=== PATIENT | male | born 1965 | race Caucasian/White ===

== ENCOUNTER 2020-08-01 09:34 | Inpatient (IN) | payer OTHER ==
[2020-08-01] MEDS ORDERED: ASPIRIN 81 MG PO STA (09:47)
[2020-08-01] MEDS ORDERED: NITROGLYCERIN SL TABS 0.4 MG TAB SUBLINGUAL STA ×3 (09:47)
--- NOTE | 2020-08-01 09:50 | ED ---
General Adult HPI - General Chief complaint: Chest Pain Stated complaint: chest pain Time Seen by Provider: 08/01/20 09:43 Source: patient, RN notes reviewed Mode of arrival: wheelchair Limitations: no limitations - History of Present Illness Initial comments: Patient is a pleasant 55-year-old male presenting to the emergency Department with complaints of chest discomfort. Onset of symptoms was last night. Discomfort is somewhat severe at this time rated 8/10. Patient does feel sweaty. Mild nausea. No dyspnea. Patient does have history of similar symptoms previously associated with heart attack a proximally 7 or 8 years ago. Discomfort feels like tightness. There is some radiation towards the neck and left arm. No leg pain or leg swelling. - Related Data Home Medications Medication Instructions Recorded Confirmed Aspirin 81 mg PO DAILY 10/05/14 10/05/14 Fenofibrate 160 mg PO DAILY 10/05/14 10/07/14 Losartan [Cozaar] 50 mg PO DAILY 10/05/14 10/07/14 Metoprolol Tartrate [Lopressor] 50 mg PO BID 10/05/14 10/07/14 Niacin [Niacin ER] 500 mg PO BID 10/05/14 10/07/14 Simvastatin [Zocor] 40 mg PO DAILY 10/05/14 10/07/14 Previous Rx's Medication Instructions Recorded Hydrocodone/Acetaminophen [[place] 1 each PO Q6HR PRN #30 tab 07/07/16 5-325] Allergies Allergy/AdvReac Type Severity Reaction Status Date / Time No Known Allergies Allergy Verified 08/01/20 11:03 Review of Systems ROS Statement: Those systems with pertinent positive or pertinent negative responses have been documented in the HPI. ROS Other: All systems not noted in ROS Statement are negative. Constitutional: Denies: fever Eyes: Denies: eye pain ENT: Denies: ear pain Respiratory: Denies: cough, dyspnea Cardiovascular: Reports: chest pain Endocrine: Denies: fatigue Gastrointestinal: Denies: abdominal pain Genitourinary: Denies: dysuria Musculoskeletal: Denies: back pain Skin: Denies: rash Neurological: Denies: weakness Past Medical History Past Medical History: GERD/Reflux, Hyperlipidemia, Myocardial Infarction ([place]) Additional Past Medical History / Comment(s): "irregular heart rate" Last Myocardial Infarction Date:: 2009 History of Any Multi-Drug Resistant Organisms: None Reported Past Surgical History: Appendectomy, Coronary Bypass/CABG, Heart Catheterization With Stent Past Anesthesia/Blood Transfusion Reactions: No Reported Reaction Additional Past Anesthesia/Blood Transfusion Reaction / Comment(s): adopted unaware of family hx Past Psychological History: No Psychological Hx Reported Smoking Status: Current every day smoker Past Alcohol Use History: Occasional Past Drug Use History: None Reported General Exam Limitations: no limitations General appearance: alert, other (Patient does have mild diaphoresis and does appear mildly uncomfortable) Head exam: Present: normocephalic Eye exam: Present: normal appearance Respiratory exam: Present: normal lung sounds bilaterally. Absent: chest wall tenderness Cardiovascular Exam: Present: regular rate, normal rhythm Expanded Peripheral pulses: 2+: Radial (R), Radial (L), Posterior Tibialis (R), Posterior Tibialis (L), Dorsalis Pedis (R), Dorsalis Pedis (L) GI/Abdominal exam: Present: soft. Absent: tenderness Extremities exam: Present: normal inspection. Absent: pedal edema, calf tenderness Neurological exam: Present: alert Psychiatric exam: Present: normal affect, normal mood Skin exam: Present: other (Mildly diaphoretic) Course Vital Signs 08/01/20 08/01/20 08/01/20 09:38 10:19 10:46 Temperature 97.7 F Pulse Rate 56 L Respiratory 18 Rate Blood Pressure 186/107 157/104 143/90 O2 Sat by Pulse 97 Oximetry EKG Findings - EKG Comments: EKG Findings:: Sinus bradycardia with a rate of 50. IL 168. QRS 110. QT 476. QTc 433. Right axis. Normal QRS. T wave inversion in V6. Medical Decision Making - Medical Decision Making Patient reevaluated and significantly improved. Patient updated on results and plan. There is mild bump in troponin with concerning symptoms. Patient will be started on heparin cardiology will be placed on consult. Dr. Payne has been paged for admission, covering for Dr. Ellsworth, who admits for Dr. Savage. - Lab Data Result diagrams: 08/01/20 10:01 08/01/20 10: Lab Results 08/01/20 08/01/20 08/01/20 Range/Units 10:01 10:01 10:01 WBC 10.2 (3.8-10.6) k/uL RBC 5.58 (4.30-5.90) m/uL Hgb 17.6 H (13.0-17.5) gm/dL Hct 51.9 (39.0-53.0) % MCV 93.0 (80.0-100.0) fL MCH 31.6 (25.0-35.0) pg MCHC 34.0 (31.0-37.0) g/dL RDW 12.3 (11.5-15.5) % Plt Count 264 (150-450) k/uL Neutrophils % 54 % Lymphocytes % 34 % Monocytes % 6 % Eosinophils % 3 % Basophils % 2 % Neutrophils # 5.5 (1.3-7.7) k/uL Lymphocytes # 3.4 (1.0-4.8) k/uL Monocytes # 0.6 (0-1.0) k/uL Eosinophils # 0.3 (0-0.7) k/uL Basophils # 0.2 (0-0.2) k/uL PT 10.4 (9.0-12.0) sec INR 1.0 (<1.2) APTT 24.0 (22.0-30.0) sec D-Dimer 0.22 (<0.60) mg/L FEU Sodium 139 (137-145) mmol/L Potassium 4.6 (3.5-5.1) mmol/L Chloride 105 (98-107) mmol/L Carbon Dioxide 28 (22-30) mmol/L Anion Gap 6 mmol/L BUN 13 (9-20) mg/dL Creatinine 1.38 H (0.66-1.25) mg/dL Est GFR (CKD-EPI)AfAm 65 (>60 ml/min/1.73 sqM) Est GFR (CKD-EPI)NonAf 56 (>60 ml/min/1.73 sqM) Glucose 137 H (74-99) mg/dL Calcium 9.6 (8.4-10.2) mg/dL Magnesium 1.8 (1.6-2.3) mg/dL Total Bilirubin 1.1 (0.2-1.3) mg/dL AST 33 (17-59) U/L ALT 37 (4-49) U/L Alkaline Phosphatase 78 (38-126) U/L Troponin I (0.000-0.034) ng/mL Total Protein 7.0 (6.3-8.2) g/dL Albumin 4.3 (3.5-5.0) g/dL 08/01/20 Range/Units 10:01 WBC (3.8-10.6) k/uL RBC (4.30-5.90) m/uL Hgb (13.0-17.5) gm/dL Hct (39.0-53.0) % MCV (80.0-100.0) fL MCH (25.0-35.0) pg MCHC (31.0-37.0) g/dL RDW (11.5-15.5) % Plt Count (150-450) k/uL Neutrophils % % Lymphocytes % % Monocytes % % Eosinophils % % Basophils % % Neutrophils # (1.3-7.7) k/uL Lymphocytes # (1.0-4.8) k/uL Monocytes # (0-1.0) k/uL Eosinophils # (0-0.7) k/uL Basophils # (0-0.2) k/uL PT (9.0-12.0) sec INR (<1.2) APTT (22.0-30.0) sec D-Dimer (<0.60) mg/L FEU Sodium (137-145) mmol/L Potassium (3.5-5.1) mmol/L Chloride (98-107) mmol/L Carbon Dioxide (22-30) mmol/L Anion Gap mmol/L BUN (9-20) mg/dL Creatinine (0.66-1.25) mg/dL Est GFR (CKD-EPI)AfAm (>60 ml/min/1.73 sqM) Est GFR (CKD-EPI)NonAf (>60 ml/min/1.73 sqM) Glucose (74-99) mg/dL Calcium (8.4-10.2) mg/dL Magnesium (1.6-2.3) mg/dL Total Bilirubin (0.2-1.3) mg/dL AST (17-59) U/L ALT (4-49) U/L Alkaline Phosphatase (38-126) U/L Troponin I 0.069 H* (0.000-0.034) ng/mL Total Protein (6.3-8.2) g/dL Albumin (3.5-5.0) g/dL Critical Care Time Critical Care Time: Yes Total Critical Care Time: 31 Disposition Clinical Impression: Unstable angina Disposition: ADMITTED IP TO THIS HOSP Condition: Serious Is patient prescribed a controlled substance at d/c from ED?: No Referrals: Farshad Savage DO [Primary Care Provider] - 1-2 days Decision Time: 11:21
--- NOTE | 2020-08-01 10:25 | XR ---
EXAMINATION TYPE: XR chest 1V portable DATE OF EXAM: 08/01/2020 COMPARISON: NONE HISTORY: Chest pain. History of bypass. TECHNIQUE: Single portable frontal view of the chest is obtained. FINDINGS: External wires and mediastinal clips. Low lung volumes with chronic parenchymal changes and bibasilar opacities. No pleural effusion or pneumothorax seen bilaterally. The cardiac silhouette s ize is upper limits of normal. The osseous structures are intact. IMPRESSION: Lung volumes with patchy bibasilar acute infiltrate and/or atelectasis.
[2020-08-01 10:43] LABS: Basophils # (A) 0.2 k/uL (0-0.2); Basophils % (A) 2 %; Eosinophils # (A) 0.3 k/uL (0-0.7); Eosinophils % (A) 3 %; HCT 51.9 % (39.0-53.0); HGB 17.6 gm/dL (13.0-17.5); Lymphocytes # (A) 3.4 k/uL (1.0-4.8); Lymphocytes % (A) 34 %; MCH 31.6 pg (25.0-35.0); Mean Platelet Volume 8.1; Monocytes # (A) 0.6 k/uL (0-1.0); Monocytes % (A) 6 %; Neutrophils # (A) 5.5 k/uL (1.3-7.7); Neutrophils % (A) 54 %; Platelet Count 264 k/uL (150-450); RBC 5.58 m/uL (4.30-5.90); RDW 12.3 % (11.5-15.5); WBC 10.2 k/uL (3.8-10.6)
[2020-08-01 10:54] LABS: Albumin 4.3 g/dL (3.5-5.0); Calcium 9.6 mg/dL (8.4-10.2); Magnesium 1.8 mg/dL (1.6-2.3); Potassium 4.6 mmol/L (3.5-5.1); Total Bilirubin 1.1 mg/dL (0.2-1.3)
[2020-08-01 11:05] LABS: D-Dimer 0.22 mg/L FEU (<0.60); Prothrombin Time 10.4 sec (9.0-12.0)
[2020-08-01] MEDS ORDERED: MORPHINE SULFATE 4 MG/ML SYRINGE IV PRN (11:21)
[2020-08-01] MEDS ORDERED: NITROGLYCERIN SL TABS 0.4 MG TAB SUBLINGUAL PRN (11:21)
[2020-08-01] MEDS ORDERED: HEPARIN SODIUM,PORCINE 5,000 UNIT/ML 1 ML VIAL IV ONE (11:21)
[2020-08-01] MEDS ORDERED: HEPARIN SODIUM,PORCINE 5,000 UNIT/ML 1 ML VIAL IV PRN (11:21)
[2020-08-01] MEDS ORDERED: HEPARIN SOD,PORK IN 0.45% NACL 25,000 UNIT in 0.45% NACL 1 250ML.BAG IV SCH (11:30)
[2020-08-01] MEDS: NITROGLYCERIN OINT 1 INCH/GM PACKET TOPICAL SCH ×2 (11:56→21:13)
--- NOTE | 2020-08-01 12:37 | P.CRDCN ---
History of Present Illness Consult date: 08/01/20 Chief complaint: Chest pain History of present illness: This is a very pleasant 55-year-old gentleman was coronary artery disease and prior coronary artery bypass grafting with unknown details at this point as well as hypertension and dyslipidemia and smoking presented to the emergency department complaining of chest discomfort. 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 The patient described the discomfort as a pressure across the chest with radiation to the jaw and neck and teeth as well as with associated sweating. No loss of consciousness or syncope. No dizziness or lightheadedness and no feeling of heart racing or fluttering. The first set of troponin came in to be slightly abnormal. The EKG showed sinus rhythm with sinus bradycardia and ST changes. The patient stated that he continues to have mild ongoing chest discomfort at this point. The patient was last time seen in our practice 2 years ago. He stated that he stop smoking but he started smoking again. Obviously he is a slightly obese and does not watch his diet and does not exercise as well. The chest x-ray did not show any acute abnormalities. Currently the patient is on heparin. I advised the patient to undergo coronary angiogram for definitive diagnosis and for possible percutaneous coronary intervention. The patient is in full agreement and full understanding. I spoke with Dr. Whitley who is going to proceed with heart catheterization once we have the room and comfortable. At this point there is no room in the [address] because of 3 wounds are occupied. The patient is going to undergo the procedure once there is a room available. Past Medical History Past Medical History: Coronary Artery Disease (CAD), Heart Failure, COPD, Diabetes Mellitus, Eye Disorder, GERD/Reflux, Hyperlipidemia, Hypertension, Myocardial Infarction ([place]) Additional Past Medical History / Comment(s): "irregular heart rate", borderline diabetic - no medications at home at this time. Last Myocardial Infarction Date:: 2009 History of Any Multi-Drug Resistant Organisms: None Reported Past Surgical History: Appendectomy, Coronary Bypass/CABG, Heart Catheterization Past Anesthesia/Blood Transfusion Reactions: No Reported Reaction Additional Past Anesthesia/Blood Transfusion Reaction / Comment(s): adopted unaware of family hx Past Psychological History: No Psychological Hx Reported Smoking Status: Current every day smoker Past Alcohol Use History: Occasional Past Drug Use History: None Reported Medications and Allergies Home Medications Medication Instructions Recorded Confirmed Type Aspirin 81 mg PO DAILY 10/05/14 10/05/14 History Fenofibrate 160 mg PO DAILY 10/05/14 10/07/14 History Metoprolol Tartrate [Lopressor] 50 mg PO BID 10/05/14 10/07/14 History Niacin [Niacin ER] 500 mg PO BID 10/05/14 10/07/14 History Atorvastatin [Lipitor] 80 mg PO HS 08/01/20 08/01/20 History Losartan Potassium 100 mg PO DAILY 08/01/20 08/01/20 History Nitroglycerin Sl Tabs [Nitrostat] 0.4 mg SUBLINGUAL Q5M PRN 08/01/20 08/01/20 History Ranitidine HCl 150 mg PO BID 08/01/20 08/01/20 History Allergies Allergy/AdvReac Type Severity Reaction Status Date / Time No Known Allergies Allergy Verified 08/01/20 11:03 Physical Exam Vitals: Vital Signs Temp Pulse Pulse Resp BP BP Pulse Ox 08/01/20 12:00 97.6 F 50 L 18 146/120 98 08/01/20 11:24 97.4 F L 52 L 18 155/106 98 08/01/20 10:46 143/90 08/01/20 10:19 157/104 08/01/20 09:38 97.7 F 56 L 18 186/107 97 Intake and Output 07/31/20 08/01/20 08/01/20 22:59 06:59 14:59 Other: Weight 101.605 kg - Constitutional General appearance: no acute distress - Respiratory Respiratory: bilateral: CTA - Cardiovascular Rhythm: regular Heart sounds: normal: S1, S2 Abnormal Heart Sounds: systolic murmur Results 08/01/20 10:01 08/01/20 10:01 Cardiac Enzymes 08/01/20 08/01/20 Range/Units 10:01 10:01 AST 33 (17-59) U/L Troponin I 0.069 H* (0.000-0.034) ng/mL Coagulation 08/01/20 Range/Units 10:01 PT 10.4 (9.0-12.0) sec APTT 24.0 (22.0-30.0) sec CBC 08/01/20 Range/Units 10:01 WBC 10.2 (3.8-10.6) k/uL RBC 5.58 (4.30-5.90) m/uL Hgb 17.6 H (13.0-17.5) gm/dL Hct 51.9 (39.0-53.0) % Plt Count 264 (150-450) k/uL Comprehensive Metabolic Panel 08/01/20 Range/Units 10:01 Sodium 139 (137-145) mmol/L Potassium 4.6 (3.5-5.1) mmol/L Chloride 105 (98-107) mmol/L Carbon Dioxide 28 (22-30) mmol/L BUN 13 (9-20) mg/dL Creatinine 1.38 H (0.66-1.25) mg/dL Glucose 137 H (74-99) mg/dL Calcium 9.6 (8.4-10.2) mg/dL AST 33 (17-59) U/L ALT 37 (4-49) U/L Alkaline Phosphatase 78 (38-126) U/L Total Protein 7.0 (6.3-8.2) g/dL Albumin 4.3 (3.5-5.0) g/dL Current Medications Generic Name Dose Route Start Last Admin Trade Name Freq PRN Reason Stop Dose Admin Aspirin 325 mg 08/02/20 09:00 Aspirin 325 Mg Tab PO DAILY [facility] Heparin Sodium (Porcine) 0 unit 08/01/20 11:21 Heparin Sodium,Porcine 5,000 Unit/Ml 1 Ml Vial IV Q6HR PRN Low PTT Protocol Heparin Sodium/Sodium Chloride 250 mls @ 10 mls/hr 08/01/20 11:30 08/01/20 11:49 25,000 unit/ Sodium Chloride IV 9.842 units/kg/hr .Q24H CHRISTINE 10 mls/hr Administration Protocol 9.842 UNITS/KG/HR Morphine Sulfate 4 mg 08/01/20 11:21 Morphine Sulfate 4 Mg/Ml Syringe IV Q5M PRN Chest Pain Nitroglycerin 0.4 mg 08/01/20 11:21 Nitroglycerin Sl Tabs 0.4 Mg Tab SUBLINGUAL Q5M PRN Chest Pain Nitroglycerin 1 inch 08/01/20 12:00 08/01/20 11:56 Nitroglycerin Oint 1 Inch/Gm Packet TOPICAL 1 inch Q6HR [facility] Administration Sodium Chloride 10 ml 08/01/20 21:00 Sodium Chloride 0.9% Flush 10 Ml Syringe IV BID CHRISTINE Intake and Output 07/31/20 08/01/20 08/01/20 22:59 06:59 14:59 Other: Weight 101.605 kg Patient Weight 08/02/20 06:59 Weight 101.605 kg 08/01/20 10:01 08/01/20 10:01 Assessment and Plan Assessment: Assessment #1 acute coronary syndrome #2 coronary artery disease and prior revascularization #3 status post coronary artery bypass grafting #4 significant history of smoking #5 hypertension #6 dyslipidemia Plan #1 continue the heparin IV #2 continue anti-ischemic medication #3 proceed with coronary angiogram #4 obtain an echocardiogram was Doppler #5 follow-up with the patient Thank you for allowing us participate in the care of the patient
[2020-08-01] MEDS ORDERED: IV FLUID CONTINUATION 350 ML IV ONE (14:30)
[2020-08-01] MEDS ORDERED: fentaNYL (PF) 50 MCG/ML 2 ML AMP ONE (14:37)
[2020-08-01] MEDS ORDERED: LIDOCAINE 1% INJ 10MG/ML (20 ML MDV) ONE (14:37)
[2020-08-01] MEDS ORDERED: fentaNYL (PF) 50 MCG/ML 2 ML AMP IV ONE (14:40)
[2020-08-01] MEDS ORDERED: LIDOCAINE 1% INJ 10MG/ML (20 ML MDV) SQ ONE (14:40)
[2020-08-01] MEDS ORDERED: MIDAZOLAM 2 MG/2 ML VIAL IV ONE (14:40)
[2020-08-01] MEDS ORDERED: IOPAMIDOL-370 125ML BTL INJ ONE (15:04)
--- NOTE | 2020-08-01 15:22 | P.CARDCATH ---
Date of Procedure: 08/01/20 Preoperative Diagnosis: Acute coronary syndrome, non-STEMI Postoperative Diagnosis: Total occlusion of the graft to the OM and a critical lesion in the RCA. Presumed total occlusion of the graft to the diagonal Procedure(s) Performed: Left heart catheterization with selective injection of the vein graft to circumflex and also OLIVO graft and [place] vessels Description of Procedure: HISTORY: This is a 55-year-old gentleman with history of ischemic heart disease with previous bypass surgery with the OLIVO graft to the LAD and diagonal and vein graft to the diagonal and also OM branch of the circumflex. Patient is admitted to the hospital with onset of chest pain around 4:00 last night which is ongoing. No acute ST elevations on EKGs. Because of ongoing chest pain, Patient is advised to have cardiac catheterization. CONSENT:I have discussed the risks, benefits and alternative therapies for the above-mentioned procedure and for both sedation/analgesia as well as necessary blood product administration, if indicated, as they pertain to this patient. The patient has indicated understanding and acceptance of the risks and procedures discussed. PROCEDURE: Patient was brought to the lab in a fasting state. Patient was given some IV sedation. The right groin is infiltrated with lidocaine and right femoral artery was entered using Seldinger technique. A 6-[place] catheter was left in place and selective coronary arteriography and left ventriculography was performed. Patient tolerated the procedure well. Patient is going to have stent placement by Dr. Pierre. No immediate complications were noted and patient was transferred to [facility] in a stable condition Conscious Sedation: Versed 1mg Fentanyl 50 g Duration 35minutes HEMODYNAMICS: Aortic pressure 120/84 SELECTIVE CORONARY ARTERIOGRAPHY: LEFT MAIN: Long with about 50-70% distal left main disease THE LEFT ANTERIOR DESCENDING CORONARY ARTERY:. Near totally occluded after the diagonal branch. The distal LAD is small in caliber and shows competitive blood flow THE LEFT CIRCUMFLEX AND IS CORONARY ARTERY: Consistent with OM branch which appears to be free of occlusive disease. It is presumed total occlusion of the circumflex and OM branch THE RIGHT CORONARY ARTERY: Which shows a critical lesion in the proximal portion and also critical lesion in the PDA The OLIVO graft to the LAD: It is patent at the proximal and also distal anastomosis to diagonal and the LAD provides flow to the diagonal and competetive flow to the distal LAD. The vein graft to the circumflex: This is totally occluded at the distal anastomosis. The vein graft to the diagonal: This seemed to be totally occluded LEFT VENTRICULOGRAPHY: Not performed FINAL IMPRESSION:. Total occlusion of the vein graft to the circumflex with patent OLIVO graft. Critical lesion in the proximal RCA and PDA of the right coronary artery. The vein graft to the diagonal is presumed total occlusion PLAN: Stent placement of the graft to the OM branch and also RCA to be done by Dr. Pierre PROGNOSIS: Guarded
--- NOTE | 2020-08-01 15:40 | ECHOF ---
Referral Reason:ACS MEASUREMENTS -------- HEIGHT: 177.8 cm WEIGHT: 101.6 kg BP: IVSd: 1.2 cm (0.6 - 1.1) LVIDd: 4.8 cm (3.9 - 5.3) LVPWd: 1.6 cm (0.6 - 1.1) IVSs: 1.7 cm LVIDs: 2.6 cm LVPWs: 1.2 cm RVIDd: 3.4 cm (< 3.3) LAESV Index (A-L): 27.70 ml/m Ao Diam: 3.5 cm (2.0 - 3.7) AV Cusp: 2.6 cm (1.5 - 2.6) EPSS: 0.2 cm MV E Rodríguez: 0.86 m/s MV DecT: 266 ms MV A Rodríguez: 0.33 m/s MV E/A Ratio: 2.63 RAP: 5.00 mmHg RVSP: 20.28 mmHg MV EF SLOPE: 125.15 mm/s (70 - 150) MV EXCURSION: 23.64 mm (> 18.000) FINDINGS -------- Sinus rhythm. This was a technically difficult study with suboptimal apical views. The left ventricular size is normal. There is mild concentric left ventricular hypertrophy. Overa ll left ventricular systolic function is low-normal with, an EF between 50 - 55 %. Basal lateral LV wall motion is hypokinetic. Basal inferior LV wall motion is hypokinetic. The right ventricle is mildly enlarged. Normal LA size by volume 22+/-6 ml/m2. The right atrial size is normal. 5.0mg of Lumason was utilized for enhancement of images Interatrial and interventricular septum intact. The aortic valve is trileaflet and appears structurally normal. There is no evidence of aortic regu rgitation. There is no evidence of aortic stenosis. No mitral regurgitation. Mild tricuspid regurgitation present. There is no evidence of pulmonary hypertension. The right v entricular systolic pressure, as measured by Doppler, is 20.28mmHg. There is no pulmonic regurgitation present. The aortic root size is normal. IVC Not well visulized. There is no pericardial effusion. CONCLUSIONS -------- 1. The left ventricular size is normal. 2. There is mild concentric left ventricular hypertrophy. 3. Overall left ventricular systolic function is low-normal with, an EF between 50 - 55 %. 4. Basal lateral LV wall motion is hypokinetic. 5. Basal inferior LV wall motion is hypokinetic. 6. The right ventricle is mildly enlarged. 7. Mild tricuspid regurgitation present. OFFICE COORDINATOR: Olivia Rolon RDCS
[2020-08-01] MEDS ORDERED: BIVALIRUDIN BOLUS 250 MG/50 ML IV ONE (15:51)
[2020-08-01] MEDS ORDERED: MIDAZOLAM 2 MG/2 ML VIAL IVP ONE (15:51)
[2020-08-01] MEDS ORDERED: BIVALIRUDIN 250 MG in SODIUM CHLORIDE 0.9% 50 ML IV ONE (15:54)
[2020-08-01] MEDS ORDERED: niCARdipine 25 MG/10 ML VIAL ONE (15:56)
[2020-08-01] MEDS ORDERED: niCARdipine Syringe (1,000 mcg/10 mL) INTRACORON ONE ×2 (15:57→16:02)
[2020-08-01] MEDS ORDERED: CLOPIDOGREL 75 MG TAB ONE (16:04)
[2020-08-01] MEDS ORDERED: ZOLPIDEM 5 MG TAB PO PRN (16:09)
[2020-08-01] MEDS ORDERED: MAG HYDROX/AL HYDROX/SIMETH 30 ML CUP PO PRN (16:09)
[2020-08-01] MEDS ORDERED: ATROPINE SULFATE 0.1 MG/ML 10ML SYRINGE IV PRN (16:09)
[2020-08-01] MEDS ORDERED: RX INFO: IV CONTRAST WAS GIVEN 1 EACH MISC MISCELLANE PRN (16:09)
[2020-08-01] MEDS ORDERED: CLOPIDOGREL 75 MG TAB PO ONE (16:14)
[2020-08-01] MEDS ORDERED: IOPAMIDOL-370 100ML BTL INJ ONE (16:14)
[2020-08-01] MEDS: SODIUM CHLORIDE 0.9% 1,000 ML IV SCH (17:59)
[2020-08-01] MEDS: NIACIN TR 500 MG CAPLET PO SCH (21:09)
[2020-08-01] MEDS: METOPROLOL TARTRATE 50 MG TAB PO SCH (21:09)
[2020-08-01] MEDS: FAMOTIDINE 20 MG TAB PO SCH (21:09)
[2020-08-01] MEDS: ATORVASTATIN 80 MG TAB PO SCH (21:09)
--- NOTE | 2020-08-01 21:55 | P.HPIM ---
History of Present Illness H&P Date: 08/01/20 Chief Complaint: Chest pain Mr. Parnell is a 55-year-old male with a past medical history of coronary artery disease status post CABG, diabetes mellitus, COPD, GERD, hyperlipidemia, hypertension coming into the hospital with a chief complaint of Chest pain. Patient states that he woke up around 4 AM this morning with chest pain. He felt tightness around his chest and neck, then it radiated to his jaw along with diaphoresis. Patient also felt that the pain radiated forward to his arms mostly towards the left side. He felt that this pain is similar to the one that he had when he had an CT. Patient mentions that he stopped smoking for 2 years after CABG, but started to smoke again. On review of systems patient denied having any cough or difficulty in breathing. No abdominal pain nausea vomiting or diarrhea. No dysuria or hematuria. No fevers chills or rigors. No headaches, neck pain or visual changes. No speech abnormalities. No weakness of his extremities. No recent infections or bleeding issues. In the ER patient had elevated troponin of 0.069, and started on heparin drip. He had an EKG showing sinus bradycardia with ST and T wave abnormalities in the lateral leads. Cardiology Dr. Pierre has been consulted, and the patient had total occlusion of the vein graft to the circumflex with patent OLIVO graft. Critical lesion in the proximal RCA and PDA of the right coronary artery. The vein graft to the diagonal is pursuing total occlusion. Patient had stenting of the RCA and OM branch, currently in the postop area. Review of Systems REVIEW OF SYSTEMS: CONSTITUTIONAL: No fever, no malaise, no fatigue. HEENT: No recent visual problems or hearing problems. Denied any sore throat. CARDIOVASCULAR: As per HPI PULMONARY: no cough, no hemoptysis. GASTROINTESTINAL: No diarrhea, no nausea, no vomiting, no abdominal pain. NEUROLOGICAL: No headaches, no weakness, no numbness. HEMATOLOGICAL: Denies any bleeding or petechiae. GENITOURINARY: No dysuria or hematuria MUSCULOSKELETAL/RHEUMATOLOGICAL: Denies any joint pain, swelling, or any muscle pain. ENDOCRINE: Denies any polyuria or polydipsia. The rest of the 14-point review of systems is negative. Past Medical History Past Medical History: Coronary Artery Disease (CAD), Heart Failure, COPD, Diabetes Mellitus, Eye Disorder, GERD/Reflux, Hyperlipidemia, Hypertension, Myocardial Infarction (CT) Additional Past Medical History / Comment(s): "irregular heart rate", borderline diabetic - no medications at home at this time. Last Myocardial Infarction Date:: 2009 History of Any Multi-Drug Resistant Organisms: None Reported Past Surgical History: Appendectomy, Coronary Bypass/CABG, Heart Catheterization Past Anesthesia/Blood Transfusion Reactions: No Reported Reaction Additional Past Anesthesia/Blood Transfusion Reaction / Comment(s): adopted unaware of family hx Past Psychological History: No Psychological Hx Reported Smoking Status: Current every day smoker Past Alcohol Use History: Occasional Past Drug Use History: None Reported Medications and Allergies Home Medications Medication Instructions Recorded Confirmed Type Aspirin 81 mg PO DAILY 10/05/14 08/01/20 History Fenofibrate 160 mg PO DAILY 10/05/14 08/01/20 History Metoprolol Tartrate [Lopressor] 50 mg PO BID 10/05/14 08/01/20 History Niacin [Niacin ER] 1,500 mg PO HS 10/05/14 08/01/20 History Atorvastatin [Lipitor] 80 mg PO HS 08/01/20 08/01/20 History Losartan Potassium 100 mg PO DAILY 08/01/20 08/01/20 History Nitroglycerin Sl Tabs [Nitrostat] 0.4 mg SUBLINGUAL Q5M PRN 08/01/20 08/01/20 History Ranitidine HCl 150 mg PO BID 08/01/20 08/01/20 History Allergies Allergy/AdvReac Type Severity Reaction Status Date / Time No Known Allergies Allergy Verified 08/01/20 11:03 Physical Exam Vitals: Vital Signs Temp Pulse Pulse Pulse Resp BP BP 08/01/20 16:58 62 16 120/70 08/01/20 16:39 52 L 18 119/70 08/01/20 16:24 56 L 18 113/70 08/01/20 13:54 53 L 136/89 08/01/20 12:00 97.6 F 50 L 18 146/120 08/01/20 11:24 97.4 F L 52 L 18 155/106 08/01/20 10:46 143/90 08/01/20 10:19 157/104 08/01/20 09:38 97.7 F 56 L 18 186/107 Pulse Ox 08/01/20 16:58 96 11/09/20 16:39 96 08/01/20 16:24 93 L 08/01/20 13:54 93 L 08/01/20 12:00 98 08/01/20 11:24 98 08/01/20 10:46 08/01/20 10:19 08/01/20 09:38 97 Intake and Output 08/01/20 08/01/20 08/01/20 06:59 14:59 22:59 Intake Total 200 35 Balance 200 35 Intake: IV 200 35 Sodium Chloride 0.9% 1, 0 000 ml @ 75 mls/hr IV . [id number] [facility] Rx#:[id number] Other: Weight 101.605 kg PHYSICAL EXAMINATION: GENERAL: The patient is alert and oriented x3, not in any acute distress. Well developed, well nourished. HEENT: Pupils are round and equally reacting to light. EOMI. No scleral icterus. No conjunctival pallor. Normocephalic, atraumatic. No pharyngeal erythema. No thyromegaly. CARDIOVASCULAR: S1 and S2 present. PULMONARY: Bilateral crackles heard. ABDOMEN: Soft, nondistended, normoactive bowel sounds. No palpable organomegaly. Mild tenderness in the left lower quadrant MUSCULOSKELETAL: No joint swelling or deformity. EXTREMITIES: No pedal edema, Right groin - incision site clean, no hematoma. NEUROLOGICAL: Gross neurological examination did not reveal any focal deficits. SKIN: No rashes. Results CBC & Chem 7: 08/01/20 10:01 08/01/20 10:01 Labs: Abnormal Lab Results - Last 24 Hours (Table) 08/01/20 08/01/20 08/01/20 Range/Units 10:01 10:01 10:01 Hgb 17.6 H (13.0-17.5) gm/dL Creatinine 1.38 H (0.66-1.25) mg/dL Glucose 137 H (74-99) mg/dL Troponin I 0.069 H* (0.000-0.034) ng/mL 08/01/20 Range/Units 12:14 Hgb (13.0-17.5) gm/dL Creatinine (0.66-1.25) mg/dL Glucose (74-99) mg/dL Troponin I 0.070 H* (0.000-0.034) ng/mL Thrombosis Risk Factor Assmnt - Choose All That Apply Any of the Below Risk Factors Present?: Yes Each Factor Represents 1 point: Age 41-60 years Thrombosis Risk Factor Assessment Total Risk Factor Score: 1 Thrombosis Risk Factor Assessment Level: Low Risk Assessment and Plan Assessment: ASSESSMENT NSTEMI Coronary artery disease status post CABG Hypertension COPD Dyslipidemia Obesity with BMI of 32 History of appendectomy GERD Significant smoking PLAN: Patient having elevated troponins and had NSTEMI, cardiac catheterization showing occlusion of RCA and OM branch, status post stenting. Continue with aspirin, Plavix, statin, MONIQUE inhibitor, beta-ashtyn. Cardiology following the patient closely. Patient extensively educated on the importance of smoking cessation. Discussed the treatment plan in detail with the patient and son was at the bedside. Further recommendations depending on the progress of the patient.
[2020-08-02] MEDS: NITROGLYCERIN OINT 1 INCH/GM PACKET TOPICAL SCH ×3 (00:34→14:01)
[2020-08-02] MEDS: SODIUM CHLORIDE 0.9% 1,000 ML IV SCH (05:06)
--- NOTE | 2020-08-02 06:37 | PTCA ---
PERCUTANEOUSTRANS CORORONARY ANGIOGRAPHY PERCUTANEOUS CORONARY INTERVENTION: DATE OF SERVICE: August 01, 2020. PERFORMING PHYSICIAN: Masood Schwarz MD. PROCEDURE PERFORMED: 1. Aspiration thrombectomy using an Brooklyn catheter from the SVG to diagonal. 2. Successful stenting of the SVG to diagonal using a 3.5 x 23 mm Xience RADHA with an excellent angiographic result. 3. Successful stenting of the mid right coronary artery using 3.5 x 15 mm Xience RADHA with an excellent angiographic result. INDICATION: This is a very pleasant 55-year-old gentleman who sees Dr. Whitley in the office on a regular basis with history of coronary artery disease and prior coronary artery bypass grafting, who presented to the emergency department complaining of chest discomfort and ruled in for acute coronary event. He underwent a heart catheterization by Dr. Whitley and was found to have occluded SVG to diagonal and severe disease involving the SVG to right coronary artery. APPROACH: Right common femoral artery. COMPLICATION: None. LEVEL OF SEDATION: Moderate with a sedation length of 30 minutes. PROCEDURE DESCRIPTION: Please refer to diagnostic heart catheterization that was performed by Dr. Whitley earlier today. Anticoagulation was achieved with Angiomax with bolus and drip per protocol. Subsequently I did engage the graft to the diagonal using an AL1 guide. After that, I did wire it using a run-through wire. I did aspiration thrombectomy using an Brooklyn catheter with extraction of large red clot. After that, I did direct stenting using 3.5 x 23 mm Xience RADHA where the stent was positioned under fluoroscopy guidance and deployed under fluoroscopic guidance under 12 atmospheres for 20 seconds with the following angiogram showing excellent angiographic results. After that for the right coronary artery, I did engage the right coronary artery using JL4 guide. I did wire it using the same run-through wire then I did direct stenting using 3.5 x 15 mm Xience drug-eluting stent where the stent was positioned under fluoroscopic guidance and deployed under fluoroscopic guidance as well. The following angiogram showed excellent angiographic results and the procedure was completed without any complication. POSTPROCEDURE MANAGEMENT: 1. Dual anti-platelet therapy. 2. Risk factor modifications. 3. Follow up with the patient. MMODL / IJN: [id number] /
[2020-08-02] MEDS ORDERED: ASPIRIN 325 MG TAB PO SCH (09:00)
[2020-08-02] MEDS: CLOPIDOGREL 75 MG TAB PO SCH (09:03)
[2020-08-02] MEDS: FAMOTIDINE 20 MG TAB PO SCH ×2 (09:03→20:17)
[2020-08-02] MEDS: FENOFIBRATE 160 MG TAB PO SCH (09:04)
[2020-08-02] MEDS: LOSARTAN 50 MG TAB PO SCH (09:04)
[2020-08-02] MEDS: METOPROLOL TARTRATE 50 MG TAB PO SCH ×2 (09:05→20:17)
[2020-08-02 09:39] LABS: Basophils % (A) 0 %; Eosinophils # (A) 0.1 k/uL (0-0.7); Eosinophils % (A) 1 %; HCT 47.5 % (39.0-53.0); HGB 15.3 gm/dL (13.0-17.5); Lymphocytes # (A) 2.2 k/uL (1.0-4.8); Lymphocytes % (A) 21 %; MCH 30.3 pg (25.0-35.0); MCHC 32.2 g/dL (31.0-37.0); MCV 94.1 fL (80.0-100.0); Mean Platelet Volume 7.9; Monocytes # (A) 0.4 k/uL (0-1.0); Monocytes % (A) 4 %; Neutrophils # (A) 7.5 k/uL (1.3-7.7); Neutrophils % (A) 72 %; Platelet Count 212 k/uL (150-450); RBC 5.05 m/uL (4.30-5.90); RDW 12.9 % (11.5-15.5); WBC 10.4 k/uL (3.8-10.6)
[2020-08-02 10:00] LABS: Calcium 8.6 mg/dL (8.4-10.2); Potassium 4.4 mmol/L (3.5-5.1)
--- NOTE | 2020-08-02 11:39 | P.PN ---
Subjective Progress Note Date: 08/02/20 Principal diagnosis: Acute coronary syndrome This is a pleasant 55-year-old gentleman with coronary artery disease and prior coronary artery bypass grafting as well as hypertension and dyslipidemia and smoking, presented to the hospital with chest discomfort and ruled in for acute coronary syndrome. He underwent a heart catheterization and was found to have occluded SVG to the diagonal and severe disease involving the RCA. He underwent successful stenting of both. He was seen this morning. He is asymptomatic. The right groin is soft and nontender and without any bruises. He is hemodynamically stable. He is on dual antiplatelet therapy as well as lipid medications. He underwent an echo which revealed normal left ventricular systolic function without significant valvular abnormalities. I recommended keeping the patient one more day to tomorrow for possible discharge in the next 24 hours Objective - Vital Signs Vital signs: Vital Signs Temp 97.7 F 08/02/20 07:55 Pulse 57 L 08/02/20 08:55 Resp 18 08/02/20 08:55 BP 114/69 08/02/20 07:55 Pulse Ox 97 08/02/20 07:55 Intake & Output 08/01/20 08/02/20 08/02/20 18:59 06:59 18:59 Intake Total 415 525 240 Output Total 300 500 Balance 115 25 240 Weight 101.605 kg 100.4 kg Intake: IV 415 Sodium Chloride 0.9% 1, 0 000 ml @ 75 mls/hr IV . [id number] [facility] Rx#:[id number] Intake, IV Titration 525 Amount Sodium Chloride 0.9% 1, 525 000 ml @ 75 mls/hr IV . [id number] [facility] Rx#:[id number] Oral 240 Output: Urine 300 500 Other: # Voids 2 - Constitutional General appearance: Present: no acute distress - Respiratory Respiratory: bilateral: CTA - Cardiovascular Rhythm: regular Heart sounds: normal: S1, S2 - Labs CBC & Chem 7: 08/02/20 08:44 08/02/20 08:44 Labs: Abnormal Lab Results - Last 24 Hours (Table) 08/01/20 08/01/20 08/02/20 Range/Units 12:14 18:20 08:44 Glucose 142 H (74-99) mg/dL Troponin I 0.070 H* 31.200 H* (0.000-0.034) ng/mL HDL Cholesterol 27 L (40-60) mg/dL Assessment and Plan Assessment: Assessment #1 acute coronary syndrome #2 coronary artery disease and prior revascularization #3 status post coronary artery bypass grafting as well as a stenting #4 significant history of smoking #5 hypertension #6 dyslipidemia Plan #1 continue the current medical regimen #2 monitor the patient for additional 24 hours #3 follow-up with the patient
[2020-08-02 11:47] VITALS: BMI 31.7
--- NOTE | 2020-08-02 16:42 | P.PN ---
Subjective Mr. Parnell is a 55-year-old male with a past medical history of coronary artery disease status post CABG, diabetes mellitus, COPD, GERD, hyperlipidemia, hypertension coming into the hospital with a chief complaint of Chest pain. Patient states that he woke up around 4 AM he developed chest pain. 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 Echocardiogram showed ejection fraction 50-55% Postoperatively patient was lying in bed comfortable, smiling, no chest pain or dyspnea, comfortable. No other complaint. He denies change in urine or bowel habits or abdominal pain. No fever Objective - Vital Signs Vital signs: Vital Signs Temp 96.2 F L 08/02/20 16:13 Pulse 54 L 08/02/20 16:31 Resp 18 08/02/20 16:31 BP 119/68 08/02/20 16:13 Pulse Ox 97 08/02/20 16:13 Intake & Output 08/01/20 08/02/20 08/02/20 18:59 06:59 18:59 Intake Total 415 525 900 Output Total 300 500 Balance 115 25 900 Weight 101.605 kg 100.4 kg 100.4 kg Intake: IV 415 Sodium Chloride 0.9% 1, 0 000 ml @ 75 mls/hr IV . [id number] [facility] Rx#:[id number] Intake, IV Titration 525 Amount Sodium Chloride 0.9% 1, 525 000 ml @ 75 mls/hr IV . [id number] [facility] Rx#:[id number] Oral 900 Output: Urine 300 500 Other: # Voids 2 2 - Exam -GENERAL: The patient is alert and oriented x3, not in any acute distress. obese HEENT: Pupils are round and equally reacting to light. EOMI. No scleral icterus. No conjunctival pallor. Normocephalic, atraumatic. No pharyngeal erythema. No thyromegaly. CARDIOVASCULAR: S1 and S2 present. No murmurs, rubs, or gallops. PULMONARY: Chest is clear to auscultation, no wheezing or crackles. ABDOMEN: Soft, nontender, nondistended, normoactive bowel sounds. No palpable organomegaly. MUSCULOSKELETAL: No joint swelling or deformity. EXTREMITIES: No cyanosis, clubbing, or pedal edema. NEUROLOGICAL: Gross neurological examination did not reveal any focal deficits. SKIN: No rashes. no petechiae. - Labs CBC & Chem 7: 08/02/20 08:44 08/02/20 08:44 Labs: Abnormal Lab Results - Last 24 Hours (Table) 08/01/20 08/02/20 Range/Units 18:20 08:44 Glucose 142 H (74-99) mg/dL Troponin I 31.200 H* (0.000-0.034) ng/mL HDL Cholesterol 27 L (40-60) mg/dL Assessment and Plan Assessment: NSTEMI, status post cardiac cath and PCI with stent 2 placement of the RCA and of the graft at the conal branch Atelectasis of the lung rather than infiltrate, no respiratory symptoms and he is on room air History of Coronary artery disease status post CABG Hypertension COPD, no acute exacerbation Dyslipidemia Obesity with BMI of 32 History of appendectomy GERD Significant smoking Plan: this is a pleasant 55 yo m, the presents with non-STEMI, status post PCI and stent placement 2 by cartilage team who R following the case closely. Cartilage team recommended to monitor the patient for another 24 hours. Continue with aspirin and Plavix, importance of adherence is explained for the patient
[2020-08-02] MEDS: NIACIN TR 500 MG CAPLET PO SCH (20:17)
[2020-08-02] MEDS: ATORVASTATIN 80 MG TAB PO SCH (20:17)
[2020-08-03 05:48] VITALS: TEMP 97.9
[2020-08-03 08:01] VITALS: BP 125/76; RESP 20
[2020-08-03 08:49] LABS: Platelet Count 199 k/uL (150-450)
[2020-08-03 09:07] VITALS: PULSE 58
[2020-08-03] MEDS: CLOPIDOGREL 75 MG TAB PO SCH (09:45)
[2020-08-03] MEDS: FAMOTIDINE 20 MG TAB PO SCH (09:45)
[2020-08-03] MEDS: FENOFIBRATE 160 MG TAB PO SCH (09:45)
[2020-08-03] MEDS: METOPROLOL TARTRATE 50 MG TAB PO SCH (09:46)
[2020-08-03] MEDS: LOSARTAN 50 MG TAB PO SCH (09:46)
--- NOTE | 2020-08-03 10:26 | P.PN ---
Subjective Progress Note Date: 08/03/20 This is a pleasant 55-year-old gentleman with known history of coronary artery bypass grafting surgery, hypertension, hyperlipidemia, nicotine dependence, who presented to the hospital with acute coronary syndrome, he underwent a cardiac catheterization and was found to have an occluded SVG to the diagonal and severe disease involving the RCA for which the patient underwent stenting of both vessels. He was seen and examined this morning, denied any chest discomfort, breathing is stable. He's been up ambulating in his room without any difficulty. Blood pressure 125/70, heart rate in the 50s, 95% on room air. No laboratory data today. Objective - Vital Signs Vital signs: Vital Signs Temp 97.9 F 08/03/20 08:00 Pulse 58 L 08/03/20 09:06 Resp 20 08/03/20 08:30 BP 125/76 08/03/20 08:00 Pulse Ox 95 08/03/20 08:00 Intake & Output 08/02/20 08/03/20 08/03/20 18:59 06:59 18:59 Intake Total 1140 480 476 Balance 1140 480 476 Weight 100.4 kg 101.3 kg Intake: Oral 1140 480 476 Other: # Voids 2 2 1 - Exam PHYSICAL EXAMINATION: GENERAL: 55-year-old gentleman in no acute distress at the time of my examination HEENT: Head is atraumatic, normocephalic. Pupils equal, round. Sclera anicteric. Conjunctiva are clear. Mucous membranes of the mouth are moist. Neck is supple. There is no elevated jugular venous pressure. No carotid bruit is heard. HEART EXAMINATION: Heart S1, S2 normal. No murmur or gallop heard. CHEST EXAMINATION: Lungs are clear to auscultation and precussion. No chest wall tenderness is noted on palpation or with deep breathing. ABDOMEN: Soft, nontender. Bowel sounds are heard. No organomegaly noted. EXTREMITIES: 2+ peripheral pulses with no evidence of peripheral edema and no calf tenderness noted. NEUROLOGIC patient is awake, alert and oriented 3 . . - Labs CBC & Chem 7: 08/03/20 07:31 08/02/20 08:44 Assessment and Plan Plan: Assessment and plan #1 acute coronary syndrome, status post angioplasty and stenting of the right coronary artery and SVG to the diagonal. #2 coronary artery disease with prior bypass surgery and stenting #3 nicotine dependence #4 hypertension #5 hyperlipidemia Plan From cardiology's perspective, patient may be able to be discharged home today. We will make him a follow-up appointment in the office with Dr. Pierre in one week. Discharge medications include aspirin 81 mg daily, Plavix 75 mg daily, Lopid breath 160 mg daily, Cozaar 100 mg daily, metoprolol 50 mg twice a day, niacin 1500 mg daily, sublingual nitroglycerin as needed for chest pain. DNP note has been reviewed, I agree with a documented findings and plan of care. Patient was seen and examined.
--- NOTE | 2020-08-03 21:11 | P.DS ---
Providers Date of admission: 08/01/20 11:21 Attending physician: Nguyễn Payne Consults: 08/01/20 11:21 Consult Physician Urgent Consulting Provider: Masood Schwarz Consult Reason/Comments: acs, ua Do you want consulting provider notified?: Yes 08/01/20 16:09 Consult Physician Routine Consulting Provider: [facility] Consult Reason/Comments: Post Interventional patient Do you want consulting provider notified?: Already Contacted Primary care physician: Farshad Savage Hospital Course: Diagnoses: NSTEMI, status post cardiac cath and PCI with stent 2 placement of the RCA and of the graft at the conal branch Atelectasis of the lung rather than infiltrate, no respiratory symptoms and he is on room air History of Coronary artery disease status post CABG Hypertension COPD, no acute exacerbation Dyslipidemia Obesity with BMI of 32 History of appendectomy GERD Significant smoking Hospital course: Mr. Parnell is a 55-year-old male with a past medical history of coronary artery disease status post CABG, diabetes mellitus, COPD, GERD, hyperlipidemia, hypertension coming into the hospital with a chief complaint of Chest pain. Patient states that he woke up around 4 AM he developed chest pain. 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 Echocardiogram showed ejection fraction 50-55% Postoperatively patient was lying in bed comfortable, smiling, no chest pain or dyspnea, comfortable. No other complaint. He denies change in urine or bowel habits or abdominal pain. No fever She was cleared for discharge by cardiology team Patient will be discharged on aspirin and Plavix, and the importance of compliance with therapies explained to the patient this as the interface and risks and he verbalized understanding and acceptance Problems and management plan were discussed with the patient and he verbalized understanding and acceptance Patient was found stable and can be discharged home however he needs follow-up as an outpatient. Patient was instructed to follow up with PCP Dr. Savage within one week and patient agrees. Patient was instructed to follow up with penology teacher Dr. Pierre in 1-2 weeks and he agrees to call and make appointments. Gen: patient is a AAOx3, no distress CVS: S1-S2, RRR, no murmur Lungs: B/L CTA, no wheezing Abdomen: soft, no distention, no tenderness, positive bowel sounds Extremity: no leg edema or induration Time spent more than 35 minutes Patient Condition at Discharge: Serious Plan - Discharge Summary Discharge Rx Participant: No New Discharge Prescriptions: New Clopidogrel [Plavix] 75 mg PO DAILY #30 tab Continue Metoprolol Tartrate [Lopressor] 50 mg PO BID Fenofibrate 160 mg PO DAILY Aspirin 81 mg PO DAILY Niacin [Niacin ER] 1,500 mg PO HS Ranitidine HCl 150 mg PO BID Losartan Potassium 100 mg PO DAILY Atorvastatin [Lipitor] 80 mg PO HS Nitroglycerin Sl Tabs [Nitrostat] 0.4 mg SUBLINGUAL Q5M PRN #25 tab PRN Reason: Chest Pain Discharge Medication List Aspirin 81 mg PO DAILY 10/05/14 [History] Fenofibrate 160 mg PO DAILY 10/05/14 [History] Metoprolol Tartrate [Lopressor] 50 mg PO BID 10/05/14 [History] Niacin [Niacin ER] 1,500 mg PO HS 10/05/14 [History] Atorvastatin [Lipitor] 80 mg PO HS 08/01/20 [History] Losartan Potassium 100 mg PO DAILY 08/01/20 [History] Ranitidine HCl 150 mg PO BID 08/01/20 [History] Clopidogrel [Plavix] 75 mg PO DAILY #30 tab 08/03/20 [Rx] Nitroglycerin Sl Tabs [Nitrostat] 0.4 mg SUBLINGUAL Q5M PRN #25 tab 08/03/20 [Rx] Follow up Appointment(s)/Referral(s): Masood Schwarz MD [STAFF PHYSICIAN] - 08/11/20 4:45 pm Farshad Savage DO [Primary Care Provider] - 08/08/20 1:00 pm (with Nurse Practitioner) Patient Instructions/Handouts: Left Heart Catheterization (DC), Coronary Intravascular Stent Placement (DC) Activity/Diet/Wound Care/Special Instructions: Heart healthy diet activity is restricted till you see your doctor Discharge Disposition: HOME WITH HOME HEALTH SERVICES
[2020-08-04] MEDS ORDERED: ASPIRIN 81 MG PO SCH (09:00)
== END 2020-08-03 11:40 | disposition home or self-care (01) | DRG 247 ==
LOC: EC 09:34 → 3SCARD 11:21
PROVIDERS: ADMIT Internal Medicine; ATTEND Internal Medicine
PROC: 027135Z Dilation of Coronary Artery, Two Arteries with Two Drug-eluting Intraluminal Devices, Percutaneous Approach (ICD-10-PCS; principal; 2020-08-01 13:10)
PROC: 02C03ZZ Extirpation of Matter from Coronary Artery, One Artery, Percutaneous Approach (ICD-10-PCS; principal; 2020-08-01 13:10)
PROC: B2111ZZ Fluoroscopy of Multiple Coronary Arteries using Low Osmolar Contrast (ICD-10-PCS; 2020-08-01 13:10)
PROC: B2131ZZ Fluoroscopy of Multiple Coronary Artery Bypass Grafts using Low Osmolar Contrast (ICD-10-PCS; 2020-08-01 13:10)
PROC: 4A023N7 Measurement of Cardiac Sampling and Pressure, Left Heart, Percutaneous Approach (ICD-10-PCS; 2020-08-01 13:10)
DX: I21.4 Non-ST elevation (NSTEMI) myocardial infarction (principal); I25.810 Atherosclerosis of coronary artery bypass graft(s) without angina pectoris; J98.11 Atelectasis; R73.03 Prediabetes; E66.9 Obesity, unspecified; E78.5 Hyperlipidemia, unspecified; I10 Essential (primary) hypertension; I25.10 Atherosclerotic heart disease of native coronary artery without angina pectoris; I25.2 Old myocardial infarction; J44.9 Chronic obstructive pulmonary disease, unspecified; K21.9 Gastro-esophageal reflux disease without esophagitis; I49.9 Cardiac arrhythmia, unspecified; F17.200 Nicotine dependence, unspecified, uncomplicated; Z68.32 Body mass index [BMI] 32.0-32.9, adult; Z79.82 Long term (current) use of aspirin; Z79.899 Other long term (current) drug therapy; Z95.5 Presence of coronary angioplasty implant and graft; Z90.49 Acquired absence of other specified parts of digestive tract; Z86.79 Personal history of other diseases of the circulatory system; Z87.898 Personal history of other specified conditions
CPT/HCPCS: 36415; 71045; 80048; 80053; 80061; 83735; 84484; 85025; 85049; 85379; 85610; 85730; 93005; 93306; 93458; 96365; 96366; 96376; 99291

== ENCOUNTER → 2021-09-19 | Outpatient (CLI) | payer OTHER ==
[2021-09-19 14:56] LABS: HCT 50.1 % (39.0-53.0); MCH 32.3 pg (25.0-35.0); Mean Platelet Volume 8.4; Platelet Count 228 k/uL (150-450); RBC 5.28 m/uL (4.30-5.90); RDW 12.3 % (11.5-15.5); WBC 7.2 k/uL (3.8-10.6)
== END | disposition home or self-care (01) ==
LOC: LABPAT 13:32
PROVIDERS: ATTEND Internal Medicine Interventional Cardiology
DX: Z01.812 Encounter for preprocedural laboratory examination (principal); I25.10 Atherosclerotic heart disease of native coronary artery without angina pectoris
CPT/HCPCS: 36415; 80051; 82565; 84520; 85027

== ENCOUNTER 2021-10-02 10:52 | Day surgery (SDC) | payer OTHER ==
[2021-09-25 15:06] VITALS: BMI 38.7
[~2021-10-02 10:52] MED LIST: ALPRAZolam 0.25 MG TAB PO PRN; ALPRAZolam 0.5 MG TAB PO PRN; ASPIRIN 325 MG TAB PO STA; ATORVASTATIN 80 MG TAB PO STA; NITROGLYCERIN SL TABS 0.4 MG TAB SUBLINGUAL PRN; SODIUM CHLORIDE 0.9% 1,000 ML in EMPTY BAG 1 BAG IV SCH
[2021-10-02 11:18] VITALS: RESP 18; TEMP 98.5
[2021-10-02] MEDS ORDERED: ASPIRIN 81 MG ONE (11:22)
[2021-10-02] MEDS ORDERED: LIDOCAINE 1% INJ 10MG/ML (20 ML MDV) ONE (12:04)
[2021-10-02] MEDS ORDERED: MIDAZOLAM 2 MG/2 ML VIAL IV ONE (12:15)
[2021-10-02] MEDS ORDERED: LIDOCAINE 1% INJ 10MG/ML (20 ML MDV) SQ ONE (12:19)
[2021-10-02] MEDS ORDERED: IOPAMIDOL-370 100ML BTL INJ ONE (12:34)
[2021-10-02] MEDS ORDERED: RX INFO: IV CONTRAST WAS GIVEN 1 EACH MISC MISCELLANE PRN (12:44)
[2021-10-02] MEDS ORDERED: SODIUM CHLORIDE 0.9% 1,000 ML IV SCH (12:45)
--- NOTE | 2021-10-02 14:04 | CC ---
CARDIAC CATHETERIZATION REPORT DATE OF SERVICE: October 02, 2020. PERFORMING PHYSICIAN: Masood Schwarz MD. PROCEDURE PERFORMED: 1. Selective left and right coronary angiogram. 2. OLIVO to LAD angiogram. 3. SVG to left circumflex angiogram. 4. Left heart catheterization. 5. Right common femoral artery angiogram. 6. Ultrasound-guided access to the right common femoral artery. INDICATION: This is a 56-year-old gentleman with coronary artery disease and prior coronary artery bypass grafting as well as stenting, who was experiencing symptoms of chest discomfort and shortness of breath. He underwent myocardial perfusion imaging stress test and that showed inferior ischemia. In light of that, a heart catheterization was advised. APPROACH: Right common femoral artery. COMPLICATIONS: None. LEVEL OF SEDATION: Moderate, with sedation length of 18 minutes. PROCEDURE DESCRIPTION: After obtaining informed consent, the patient was brought to the cardiac laborer demolition. The right common femoral artery was cannulated using micropuncture technique. The micropuncture wire passed easily. Then I placed a 6-[place] sheath in the right common femoral artery after I dilated the artery with 6-[place] dilator. I did selective left and right coronary angiogram with JL4 and JR4 catheters. OLIVO to LAD angiogram and SVG to left circumflex angiogram performed using the JR4 catheter. Left heart catheterization was performed using 5-S[place] Arabian pigtail catheter. After that, I did selective right common femoral artery angioplasty. The procedure was completed without any complication. SELECTIVE CORONARY ANGIOGRAM: 1. The left main is a short left main. It bifurcates into the left circumflex and left anterior descending artery. 2. The left circumflex is chronically occluded by the proximal portion. 3. The LAD: The proximal LAD by the bifurcation of a large diagonal branch has disease appeared to be in the range of 30% to 40%. The ostial guide has a lesion appeared to be in the range of 50%. The mid and distal LAD appeared to have mild disease only. 4. The right coronary artery is a large-caliber vessel. The RCA is stented in the mid portion and the stent is patent. Otherwise, the RCA has mild diffuse disease. CORONARY ARTERY BYPASS ANGIOGRAM: 1. The SVG to left circumflex is patent with a sluggish flow in the graft. There is no obstructive CAD noted. 2. The OLIVO to LAD is patent and the OLIVO seems to be atrophic because of good antegrade flow in the LAD. HEMODYNAMICS: The LVEDP was about 24-25 mmHg without significant gradient across aortic valve. CONCLUSION: 1. Severe triple-vessel coronary artery disease. 2. Patent OLIVO to LAD. 3. Patent SVG to left circumflex. 4. Patent stent in the right coronary artery. 5. Elevated left-sided filling pressure. POSTPROCEDURE MANAGEMENT: Given the above anatomy, I advised aggressive cholesterol control and risk factor modifications and follow up with the patient. FALLON / EDUARDN: [id number] /
[2021-10-02 16:29] VITALS: BP 121/75; PULSE 52
== END 2021-10-02 17:04 | disposition home or self-care (01) ==
LOC: CATHCVL 10:52
PROVIDERS: ATTEND Internal Medicine Interventional Cardiology
DX: I25.10 Atherosclerotic heart disease of native coronary artery without angina pectoris (principal); I10 Essential (primary) hypertension; E78.5 Hyperlipidemia, unspecified; I73.9 Peripheral vascular disease, unspecified; I25.2 Old myocardial infarction; F17.210 Nicotine dependence, cigarettes, uncomplicated; E78.00 Pure hypercholesterolemia, unspecified; J44.9 Chronic obstructive pulmonary disease, unspecified; Z20.822 Contact with and (suspected) exposure to COVID-19; Z95.1 Presence of aortocoronary bypass graft; Z95.5 Presence of coronary angioplasty implant and graft; Z79.02 Long term (current) use of antithrombotics/antiplatelets; Z79.899 Other long term (current) drug therapy
CPT/HCPCS: 93459; 76937; 87635; C1760; C1894; C1769 ×2; J2250; J2001; Q9967

== ENCOUNTER → 2022-09-26 | Outpatient (CLI) | payer OTHER ==
[2022-09-26 19:26] LABS: ALT 30 U/L (10-49); Chol/HDL Ratio 6.57 Ratio
== END | disposition home or self-care (01) ==
LOC: LABWHC1 13:25
PROVIDERS: ATTEND Internal Medicine Interventional Cardiology
DX: E78.00 Pure hypercholesterolemia, unspecified (principal)
CPT/HCPCS: 36415; 80061; 84460

== ENCOUNTER → 2022-10-19 | Outpatient (CLI) | payer OTHER ==
--- NOTE | 2022-10-19 10:27 | CTL ---
EXAMINATION TYPE: CT Low Dose Lung DATE OF EXAM ORDERED: 10/19/2022 HISTORY: Long-term tobacco use. Lung cancer screening CT DLP: 94.[address] CTDI: 2.6 mGy Automated exposure control for dose reduction was used. SCREENING VISIT: Baseline COMPARISON: None TECHNIQUE: Low dose computed tomography scan was performed through the chest at 1 mm thick sections a nd reconstructed images in multiple planes at 1 mm and [address] DIAGNOSTIC QUALITY: Satisfactory FINDINGS: LUNG NODULES: Present, detailed below: A few scattered small nodules. For reference 2-3 mm peripheral right upper lobe nodule axial image 10 6. For reference 5 mm peripheral left lower lobe nodule axial image 162. A long linear scarring in th e inferior lingula there is slightly more suspicious nodularity measuring 1.4 x 1.0 cm on axial image 204 corresponding to sagittal image 305 and coronal image 123. LUNGS: COPD: Severity: Minimal Fibrosis: Severity: Mild in the lower lungs Lymph nodes: No greater than 1 cm Other findings: None RIGHT PLEURAL SPACE: Effusion: None Calcification: None Thickening: None Pneumothorax: None LEFT PLEURAL SPACE: Effusion: None Calcification: None Thickening: None Pneumothorax: None HEART: Heart Size: Normal Coronary Calcification: Post CABG changes noted Pericardial Effusion: None OTHER FINDINGS: Upper abdomen: None Bony thorax: Scoliosis is present. Supraclavicular region: None Other: None IMPRESSION: Few scattered small nodules. Linear scarring in the lingula with possible thickened scarr ing versus true nodularity. Neoplasm at this level cannot be excluded. CT LUNG RAD AND CT CHEST RECOMMENDATION: Lung-Rad 4A Suspicious: Follow-up 3 month LDCT or PET/CT may be used when there is a > 8 mm solid component. S Modifier (other clinically significant findings): None Recommendation: Advise PET CT follow-up.
--- NOTE | 2022-10-19 11:04 | XR ---
EXAMINATION TYPE: XR foot complete LT DATE OF EXAM: 10/19/2022 CLINICAL HISTORY: Chronic arch pain TECHNIQUE: Frontal, lateral, and oblique images of the left foot are obtained. COMPARISON: None FINDINGS: There is no acute fracture/dislocation evident in the left foot joint spaces maintained. M ild degenerative changes at the first metatarsal phalangeal joint. Mild calcaneal spurring at the ins ertion of the plantar fascia as well as the Achilles tendon. The overlying soft tissue appears unrema rkable. IMPRESSION: 1. No acute abnormality. 2. Mild calcaneal spurring as above. 3. Mild degenerative changes at the first metatarsophalangeal joint.
[2022-10-19 16:02] LABS: Anion Gap 11.7 mmol/L (10.00-18.00); BUN/Creat Ratio 10.66 Ratio (12.00-20.00); Blood Urea Nitrogen 14.6 mg/dL (9.0-27.0); Calcium 9.3 mg/dL (8.7-10.3); Carbon Dioxide 24.9 mmol/L (20.0-27.5); Non-African American GFR(CKD) 56.1 (60.0-200.0); Potassium 4.4 mmol/L (3.5-5.5)
== END | disposition home or self-care (01) ==
LOC: RADCTMAIN 08:11
PROVIDERS: ATTEND Internal Medicine
DX: Z12.2 Encounter for screening for malignant neoplasm of respiratory organs (principal); M19.072 Primary osteoarthritis, left ankle and foot; F17.200 Nicotine dependence, unspecified, uncomplicated; M77.32 Calcaneal spur, left foot
CPT/HCPCS: 71271; 80048

== ENCOUNTER → 2022-10-25 | Outpatient (CLI) | payer OTHER ==
--- NOTE | 2022-10-25 13:59 | US ---
EXAMINATION TYPE: US kidneys/renal and bladder DATE OF EXAM: 10/25/2022 COMPARISON: NONE CLINICAL HISTORY: [id number] renal insufficiency. Intermittent flank/back pain EXAM MEASUREMENTS: Right Kidney: 10.2 x 5.5 x 6.3 cm Left Kidney: 10.9 x 5.3 x 4.7 cm Right Kidney: wnl Left Kidney: wnl Bladder: wnl as seen, not fully distended Bilateral Jets seen: no There is no evidence for hydronephrosis at this point in time. No nephrolithiasis is seen. No anna s are identified. The urinary bladder is anechoic. IMPRESSION: No evidence of obstructive uropathy.
== END | disposition home or self-care (01) ==
LOC: RADUSWWP 13:34
PROVIDERS: ATTEND Internal Medicine
DX: N28.9 Disorder of kidney and ureter, unspecified (principal)
CPT/HCPCS: 76770

== ENCOUNTER 2022-10-27 09:56 | Emergency (ER) | payer OTHER ==
[2022-10-27 10:04] VITALS: RESP 18; TEMP 98
[2022-10-27] MEDS ORDERED: hydrALAZINE HCL 20 MG/ML 1 ML VIAL IVP STA (10:16)
--- NOTE | 2022-10-27 10:34 | ED ---
General Adult HPI - General Chief complaint: Recheck/Abnormal Lab/Rx Stated complaint: Hypertension Time Seen by Provider: 10/27/22 10:05 Source: patient, RN notes reviewed Mode of arrival: ambulatory Limitations: no limitations - History of Present Illness Initial comments: 57-year-old male presents emergency Department with chief complaint of hypertens ion. Patient states been checking her last week and has noticed been up. He states he has very minimal intermittent headaches. He denies any chest pain shortness breath fevers chills no nausea vomiting he states he was follow-up with a new PCP he states he is on current medications and states that his doses earlier this morning. Patient denies any recent URI symptoms denies nausea vomiting no point headache currently no focal weakness. - Related Data Home Medications Medication Instructions Recorded Confirmed Aspirin 81 mg PO DAILY 10/05/14 10/02/21 Fenofibrate 160 mg PO DAILY 10/05/14 10/02/21 Metoprolol Tartrate [Lopressor] 50 mg PO BID 10/05/14 10/02/21 Niacin [Niacin ER] 1,500 mg PO HS 10/05/14 10/02/21 Atorvastatin [Lipitor] 80 mg PO HS 08/01/20 10/02/21 Losartan Potassium 100 mg PO DAILY 08/01/20 10/02/21 raNITIdine HCL [Zantac] 150 mg PO BID 08/01/20 10/02/21 Previous Rx's Medication Instructions Recorded Clopidogrel [Plavix] 75 mg PO DAILY #30 tab 08/03/20 Nitroglycerin Sl Tabs [Nitrostat] 0.4 mg SUBLINGUAL Q5M PRN #25 tab 08/03/20 Allergies Allergy/AdvReac Type Severity Reaction Status Date / Time No Known Allergies Allergy Verified 10/27/22 10:03 Review of Systems ROS Statement: Those systems with pertinent positive or pertinent negative responses have been documented in the HPI. ROS Other: All systems not noted in ROS Statement are negative. Past Medical History Past Medical History: Coronary Artery Disease (CAD), Heart Failure, COPD, Diabetes Mellitus, Eye Disorder, GERD/Reflux, Hyperlipidemia, Hypertension, Myocardial Infarction ([place]) Additional Past Medical History / Comment(s): "irregular heart rate", borderline diabetic - no medications at home at this time. Last Myocardial Infarction Date:: 2009 History of Any Multi-Drug Resistant Organisms: None Reported Past Surgical History: Appendectomy, Coronary Bypass/CABG, Heart Catheterization Past Anesthesia/Blood Transfusion Reactions: No Reported Reaction Additional Past Anesthesia/Blood Transfusion Reaction / Comment(s): adopted unaware of family hx Past Psychological History: No Psychological Hx Reported Smoking Status: Current every day smoker Past Alcohol Use History: Occasional Past Drug Use History: None Reported General Exam Limitations: no limitations General appearance: alert, in no apparent distress Head exam: Present: atraumatic, normocephalic, normal inspection Eye exam: Present: normal appearance, PERRL, EOMI. Absent: scleral icterus, conjunctival injection, periorbital swelling ENT exam: Present: normal exam, normal oropharynx, mucous membranes moist, TM's normal bilaterally Neck exam: Present: normal inspection, full ROM. Absent: tenderness, meningismus, lymphadenopathy Respiratory exam: Present: normal lung sounds bilaterally. Absent: respiratory distress, wheezes, rales, rhonchi, stridor Cardiovascular Exam: Present: regular rate, normal rhythm, normal heart sounds. Absent: systolic murmur, diastolic murmur, rubs, gallop, clicks GI/Abdominal exam: Present: soft, normal bowel sounds. Absent: distended, tenderness, guarding, rebound, rigid Neurological exam: Present: alert, oriented X3 Skin exam: Present: warm, dry, intact, normal color. Absent: rash Course Vital Signs 10/27/22 10/27/22 10/27/22 10:01 10:40 11:06 Temperature 98 F Pulse Rate 57 L 56 L Respiratory 18 18 Rate Blood Pressure 183/116 168/110 138/91 O2 Sat by Pulse 100 Oximetry Medical Decision Making - Medical Decision Making Was pt. sent in by a medical professional or institution (, PA, METEOROLOGY INSTRUCTOR, urgent care, hospital, or halfway...) When possible be specific @ -No Did you speak to anyone other than the patient for history (EMS, parent, family, police, friend...)? What history was obtained from this source @ -No Did you review nursing and triage notes (agree or disagree)? Why? @ -I reviewed and agree with nursing and triage notes Were old charts reviewed (outside hosp., previous admission, EMS record, old EKG, old radiological studies, urgent care reports/EKG's, halfway records)? Report findings @ -No old charts were reviewed Differential Diagnosis (chest pain, altered mental status, abdominal pain women, abdominal pain men, vaginal bleeding, weakness, fever, dyspnea, syncope, headache, dizziness, GI bleed, back pain, seizure, CVA, palpatations, mental health)? @ -Hypertension, chest pain, dehydration, renal failure, this is inclusive EKG interpreted by me (3pts min.). @ -As above X-rays interpreted by me (1pt min.). @ -Chest x-ray no acute process CT interpreted by me (1pt min.). @ -None done U/S interpreted by me (1pt. min.). @ -None done What testing was considered but not performed or refused? (CT, X-rays, U/S, labs)? Why? @ -None What meds were considered but not given or refused? Why? @ -None Did you discuss the management of the patient with other professionals (professionals i.e. , PA, METEOROLOGY INSTRUCTOR, lab, RT, psych nurse, social media strategist, assembler golf wood head, teacher, residential care officer, case management assistant)? Give summary @ -No Was smoking cessation discussed for >3mins.? @ -No Was critical care preformed (if so, how long)? @ -No Were there social determinants of health that impacted care today? How? (Homelessness, low income, unemployed, alcoholism, drug addiction, transportation, low edu. Level, literacy, decrease access to med. care, fci, rehab)? @ -No Was there de-escalation of care discussed even if they declined (Discuss DNR or withdrawal of care, Hospice)? DNR status @ -No What co-morbidities impacted this encounter? (DM, HTN, Smoking, COPD, CAD, Cancer, CVA, ARF, Chemo, Hep., AIDS, mental health diagnosis, sleep apnea, morbid obesity)? @ -Hypertension, smoking history, CAD Was patient admitted / discharged? Hospital course, mention meds given and route, prescriptions, significant lab abnormalities, going to OR and other pertinent info. @ -Discharged - patient's blood pressures improved after hydralazine. Labs unremarkable. Patient denies any new follow-up with his PCP, director report regarding his medication for further changes. Undiagnosed new problem with uncertain prognosis? @ -No Drug Therapy requiring intensive monitoring for toxicity (Heparin, Nitro, Insulin, Cardizem)? @ -No Were any procedures done? @ -No Diagnosis/symptom? @ -Hypertension Acute, or Chronic, or Acute on Chronic? @ -Acute on chronic Uncomplicated (without systemic symptoms) or Complicated (systemic symptoms)? @ -default Side effects of treatment? @ -No Exacerbation, Progression, or Severe Exacerbation? @ -Exacerbation Poses a threat to life or bodily function? How? (Chest pain, [place], [place], pneumonia, PE, COPD, DKA, ARF, appy, cholecystitis, CVA, Diverticulitis, Homicidal, Suicidal, threat to staff... and all critical care pts) @ -No - Lab Data Result diagrams: 10/27/22 10:40 10/27/22 10:40 Lab Results 10/27/22 10/27/22 Range/Units 10:40 10:40 WBC 7.3 (3.8-10.6) k/uL RBC 5.44 (4.30-5.90) m/uL Hgb 16.7 (13.0-17.5) gm/dL Hct 48.9 (39.0-53.0) % MCV 89.9 (80.0-100.0) fL MCH 30.7 (25.0-35.0) pg MCHC 34.2 (31.0-37.0) g/dL RDW 12.2 (11.5-15.5) % Plt Count 205 (150-450) k/uL MPV 8.1 Neutrophils % 61 % Lymphocytes % 28 % Monocytes % 6 % Eosinophils % 3 % Basophils % 1 % Neutrophils # 4.5 (1.3-7.7) k/uL Lymphocytes # 2.1 (1.0-4.8) k/uL Monocytes # 0.4 (0-1.0) k/uL Eosinophils # 0.2 (0-0.7) k/uL Basophils # 0.1 (0-0.2) k/uL Sodium 139 (137-145) mmol/L Potassium 4.2 (3.5-5.1) mmol/L Chloride 106 (98-107) mmol/L Carbon Dioxide 28 (22-30) mmol/L Anion Gap 5 mmol/L BUN 15 (9-20) mg/dL Creatinine 1.19 (0.66-1.25) mg/dL Est GFR (CKD-EPI)AfAm 77 (>60 ml/min/1.73 sqM) Est GFR (CKD-EPI)NonAf 67 (>60 ml/min/1.73 sqM) Glucose 114 H (74-99) mg/dL Calcium 9.3 (8.4-10.2) mg/dL Magnesium 1.9 (1.6-2.3) mg/dL Total Bilirubin 0.7 (0.2-1.3) mg/dL AST 27 (17-59) U/L ALT 52 H (4-49) U/L Alkaline Phosphatase 54 (38-126) U/L Total Protein 7.0 (6.3-8.2) g/dL Albumin 4.4 (3.5-5.0) g/dL Disposition Clinical Impression: Hypertension Disposition: HOME SELF-CARE Condition: Stable Instructions (If sedation given, give patient instructions): Hypertension (ED) Additional Instructions: Please return to the Emergency Department if symptoms worsen or any other concerns. Is patient prescribed a controlled substance at d/c from ED?: No Referrals: Jeff Rehman MD [Primary Care Provider] - 1-2 days Time of Disposition: 11:24
[2022-10-27 10:51] LABS: Basophils # (A) 0.1 k/uL (0-0.2); Basophils % (A) 1 %; Eosinophils # (A) 0.2 k/uL (0-0.7); Eosinophils % (A) 3 %; HCT 48.9 % (39.0-53.0); HGB 16.7 gm/dL (13.0-17.5); Lymphocytes # (A) 2.1 k/uL (1.0-4.8); Lymphocytes % (A) 28 %; MCH 30.7 pg (25.0-35.0); MCHC 34.2 g/dL (31.0-37.0); MCV 89.9 fL (80.0-100.0); Mean Platelet Volume 8.1; Monocytes # (A) 0.4 k/uL (0-1.0); Monocytes % (A) 6 %; Neutrophils # (A) 4.5 k/uL (1.3-7.7); Neutrophils % (A) 61 %; Platelet Count 205 k/uL (150-450); RBC 5.44 m/uL (4.30-5.90); RDW 12.2 % (11.5-15.5); WBC 7.3 k/uL (3.8-10.6)
--- NOTE | 2022-10-27 11:02 | XR ---
EXAMINATION TYPE: XR chest 2V DATE OF EXAM: 10/27/2022 COMPARISON: Chest x-ray August 01, 2020. HISTORY: Chest pain. TECHNIQUE: Frontal and lateral views of the chest are obtained. FINDINGS: There is patchy bibasilar opacity. Overlying sternal wires are redemonstrated. The cardiac silhouette size is within normal limits on current study. The osseous structures are intact. IMPRESSION: Patchy bibasilar atelectasis and/or infiltrate less prominent versus prior.
[2022-10-27 11:03] LABS: Albumin 4.4 g/dL (3.5-5.0); Calcium 9.3 mg/dL (8.4-10.2); Magnesium 1.9 mg/dL (1.6-2.3); Potassium 4.2 mmol/L (3.5-5.1); Total Bilirubin 0.7 mg/dL (0.2-1.3)
[2022-10-27 11:07] VITALS: BP 138/91; PULSE 56
== END 2022-10-27 11:45 | disposition home or self-care (01) ==
LOC: EC 09:56
DX: I10 Essential (primary) hypertension (principal); E11.9 Type 2 diabetes mellitus without complications; E78.5 Hyperlipidemia, unspecified; I11.0 Hypertensive heart disease with heart failure; I25.10 Atherosclerotic heart disease of native coronary artery without angina pectoris; I25.2 Old myocardial infarction; I50.9 Heart failure, unspecified; J44.9 Chronic obstructive pulmonary disease, unspecified; F17.200 Nicotine dependence, unspecified, uncomplicated; Z79.02 Long term (current) use of antithrombotics/antiplatelets; Z79.82 Long term (current) use of aspirin; Z79.899 Other long term (current) drug therapy
CPT/HCPCS: 36415; 93005; 80053; 83735; 85025; 71046; 99283; 96374; J0360

== ENCOUNTER → 2023-03-29 | Outpatient (CLI) | payer OTHER ==
[2023-03-29 21:05] LABS: % Iron Saturation 20.38 (15.00-50.00); ALT 38 U/L (10-49); AST 23 U/L (14-35); Albumin 4.4 d/dL (3.8-4.9); Alkaline Phosphatase 83 U/L (41-126); BUN/Creat Ratio 9.64 Ratio (12.00-20.00); Blood Urea Nitrogen 13.5 mg/dL (9.0-27.0); Calcium 9.4 mg/dL (8.7-10.3); Carbon Dioxide 26.2 mmol/L (21.6-31.8); Chloride 103 mmol/L (96-109); Globulin 2.2 d/dL (1.6-3.3); Glucose 137 mg/dL (70-110); Iron 65 UG/DL (65-175); Magnesium 1.9 mg/dL (1.5-2.4); Phosphorus 3.9 mg/dL (2.4-5.1); Potassium 4.1 mmol/L (3.5-5.5); Sodium 142 mmol/L (135-145); Total Bilirubin 0.3 mg/dL (0.3-1.2); Total Iron Binding Capacity 319 UG/DL (228-460); Total Protein 6.6 d/dL (6.2-8.2); Uric Acid 6.3 mg/dL (3.7-8.7)
[2023-03-29 21:48] LABS: HCT 49.8 % (39.6-50.0); HGB 16.6 d/dL (12.0-15.0); MCH 31.1 pg (27.0-32.0); MCHC 33.3 d/dL (32.0-37.0); MCV 93.3 FL (80.0-97.0); Mean Platelet Volume 11.6 FL (9.5-12.2); NRBC Per 100 WBC 0 X 10*3/uL (0.00-0.01); Platelet Count 235 X 10*3/uL (140-440); RBC 5.34 X 10*6/uL (4.40-5.60); RDW 12.4 % (11.5-14.5); WBC 7.16 X 10*3/uL (4.50-10.00)
== END | disposition home or self-care (01) ==
LOC: LABWHC1 13:45
PROVIDERS: ATTEND Internal Medicine
DX: E55.9 Vitamin D deficiency, unspecified (principal); D63.1 Anemia in chronic kidney disease; N39.0 Urinary tract infection, site not specified; M10.9 Gout, unspecified; E21.3 Hyperparathyroidism, unspecified; N18.2 Chronic kidney disease, stage 2 (mild); R80.9 Proteinuria, unspecified
CPT/HCPCS: 36415; 80053; 82306; 82728; 83540; 83550; 83735; 83970; 84100; 84550; 85027

== ENCOUNTER → 2023-08-12 | Outpatient (CLI) | payer OTHER ==
[2023-08-12 11:11] LABS: Basophils # (A) 0.08 X 10*3/uL (0.00-0.10); Eosinophils # (A) 0.31 X 10*3/uL (0.04-0.35); Eosinophils % (A) 3.7 %; HCT 49.5 % (39.6-50.0); HGB 16.5 g/dL (13.0-17.0); Lymphocytes # (A) 2.98 X 10*3/uL (0.90-5.00); Lymphocytes % (A) 35.6 %; MCHC 33.3 g/dL (32.0-37.0); MCV 92.9 FL (80.0-97.0); Mean Platelet Volume 11.1 FL (9.5-12.2); Monocytes # (A) 0.65 X 10*3/uL (0.20-1.00); Monocytes % (A) 7.8 %; NRBC Per 100 WBC 0 X 10*3/uL (0.00-0.01); Neutrophils # (A) 4.33 X 10*3/uL (1.80-7.70); Neutrophils % (A) 51.7 %; Platelet Count 242 X 10*3/uL (140-440); RBC 5.33 X 10*6/uL (4.40-5.60); RDW 12.7 % (11.5-14.5); WBC 8.37 X 10*3/uL (4.50-10.00)
[2023-08-12 11:24] LABS: BUN/Creat Ratio 10.07 Ratio (12.00-20.00); Blood Urea Nitrogen 15.1 mg/dL (9.0-27.0); Chloride 103 mmol/L (96-109); Chol/HDL Ratio 4.15 Ratio; Glucose 98 mg/dL (70-110); LDL Cholesterol,Calculated 75.3 mg/dL (0.0-131.0); Potassium 4.3 mmol/L (3.5-5.5); Sodium 140 mmol/L (135-145)
[2023-08-12 11:25] LABS: ALT 37 U/L (10-49); AST 23 U/L (14-35); Albumin 4.5 g/dL (3.8-4.9); Albumin/Globulin Ratio 2.25 Ratio (1.60-3.17); Alkaline Phosphatase 67 U/L (41-126); Calcium 9.7 mg/dL (8.7-10.3); Carbon Dioxide 13.4 mmol/L (21.6-31.8); Prostate Specific Antigen 0.88 ng/mL (0.000-4.500); Total Bilirubin 0.6 mg/dL (0.3-1.2); Total Protein 6.5 g/dL (6.2-8.2)
== END | disposition home or self-care (01) ==
LOC: LABWHC1 07:25
PROVIDERS: ATTEND Internal Medicine
DX: Z00.00 Encounter for general adult medical examination without abnormal findings (principal); Z12.5 Encounter for screening for malignant neoplasm of prostate; I10 Essential (primary) hypertension; E78.5 Hyperlipidemia, unspecified
CPT/HCPCS: 36415; 80053; 80061; 83735; 84153; 84443; 85025